=== PATIENT | female | born 1970 | race Caucasian/White ===

== ENCOUNTER 2016-07-11 08:57 | Day surgery (SDC) | payer OTHER ==
[~2016-07-11] VITALS: Ht 170.2 cm; Wt 117.9 kg
[~2016-07-11 08:57] MED LIST: ACID REDUCER75 MG PO; FLOXIN OTIC SOLN5 ML BOTH EARS; IBUPROFEN200 M1 PO; LORTAB 7.5-3251 EACH PO; MOBIC7.5 MG PO; VENTOLIN HFA18 GM IH; VICODIN 5-3001 EACH PO; VICODIN,LORT1 TABLET PO; ZANAFLEX2 M1 PO; ZOLOFT50 MG PO
== END 2016-07-11 11:37 | disposition home or self-care (01) ==
LOC: PAIN 08:57
DX: M47.896 Other spondylosis, lumbar region (principal); M54.30 Sciatica, unspecified side; M53.3 Sacrococcygeal disorders, not elsewhere classified; M54.16 Radiculopathy, lumbar region; F41.1 Generalized anxiety disorder; E66.1 Drug-induced obesity; M19.90 Unspecified osteoarthritis, unspecified site
CPT/HCPCS: J1030; J2250; J3010

== ENCOUNTER 2016-07-18 07:17 | Day surgery (SDC) | payer OTHER ==
[~2016-07-18] VITALS: Ht 170.2 cm; Wt 79.4 kg
[2016-07-18] MEDS ORDERED: MUCINEX FAST-M180 ML PO (07:45)
== END 2016-07-18 09:14 | disposition home or self-care (01) ==
LOC: PAIN 07:17 → SDC 07:45 → PAIN 07:45
DX: M47.896 Other spondylosis, lumbar region (principal); M54.16 Radiculopathy, lumbar region; M53.3 Sacrococcygeal disorders, not elsewhere classified; M54.30 Sciatica, unspecified side; F41.1 Generalized anxiety disorder
CPT/HCPCS: J1030; J2250; J3010; S0020